=== PATIENT | female | born 1995 | race Two or more races ===

== ENCOUNTER 2019-03-21 19:08 | Emergency (ER) | payer OTHER, BC ==
[~2019-03-21] VITALS: Ht 160 cm; Wt 54.1 kg
[2019-03-21 19:17] VITALS: Ht 160 cm; Wt 54.1 kg
[2019-03-21 23:29] VITALS: BP 94/58
== END 2019-03-21 23:29 | disposition home or self-care (01) ==
LOC: ED 19:08
DX: S80.02XA Contusion of left knee, initial encounter (principal); R51 Headache; V43.52XA Car driver injured in collision with other type car in traffic accident, initial encounter; Y93.I9 Activity, other involving external motion; Y92.488 Other paved roadways as the place of occurrence of the external cause; Y99.8 Other external cause status